=== PATIENT | female | born 1930 | race Two or more races ===

== ENCOUNTER 2018-04-20 11:41 | Inpatient (IN) | payer MEDICARE, OTHER ==
[~2018-04-20] VITALS: Ht 142.2 cm; Wt 48.1 kg
[~2018-04-20 11:41] MED LIST: METH5TAB6 PO; OLOP5DRO OP; VITA1TAB56 PO
--- NOTE | 2018-04-20 12:00 | NUR ---
RAY AT BEDSIDE
--- NOTE | 2018-04-20 12:00 | NUR ---
GRADY FROM HOME DT SP FALL, PATIENT WAS FOUND ON THE FLOOR. PATIENT RECEIVED AWAKE AND ALERT, CONFUSED. APPEARS IN NO DISTRESS. RESPIRATION EVEN AND UNLABORD. AFEBRILE. PER PATIENT'S SON SHE HAS BEEN WEAK FOR THE LAST TWO DAY. VSS. CONNECTED PT TO TELE MONITOR.
[2018-04-20] MEDS ORDERED: IV NS 0.9% 1,000 ML BAG IV ONE (12:30)
[2018-04-20 12:56] LABS: BASOPHILS % (AUTO) 0.4 % (0.0-2.0); EOSINOPHILS % (AUTO) 0.2 % (0.0-6.0); HEMATOCRIT 35 % (33-45); HEMOGLOBIN 12.1 g/dL (11.5-14.8); LYMPHOCYTES # (AUTO) 1.1 /CMM (0.8-4.8); LYMPHOCYTES % (AUTO) 9.3 % (20.0-44.0); MEAN CORPUSCULAR HGB CONC 35 g/dl (31.0-36.0); MEAN CORPUSCULAR VOLUME 98 fL (82-100); MONOCYTES # (AUTO) 0.7 /CMM (0.1-1.30); MONOCYTES % (AUTO) 6.4 % (2.0-12.0); NEUTROPHILS # (AUTO) 9.8 /CMM (1.8-8.9); NEUTROPHILS % (AUTO) 83.7 % (43.0-81.0); PLATELET COUNT (AUTO) 184 /CMM (150-450); RDW COEFFICIENT OF VARIATION 13.7 (11.5-15.0); RED BLOOD CELL COUNT(AUTO) 3.55 MIL/uL (4.0-5.2); WHITE BLOOD COUNT (AUTO) 11.6 K/uL (4.3-11.0)
[2018-04-20 13:06] LABS: APPEARANCE,URINE Clear (CLEAR); BILIRUBIN,URINE Negative (NEGATIVE); BLOOD, URINE Large Ery/uL (NEGATIVE); COLOR,URINE Yellow (YELLOW); KETONES,URINE Negative (NEGATIVE); LEUKOCYTE ESTERASE ,URINE Negative (NEGATIVE); NITRITE, URINE Negative (NEGATIVE); PH,URINE 5.5 (5.0-8.0); PROTEIN,URINE Trace mg/dl (NEGATIVE); UGLUCOSE Negative (NEGATIVE); UROBILINOGEN,URINE 0.2 EU/dL (0.2)
[2018-04-20 13:07] LABS: CALCIUM, SERUM 8.4 mg/dL (8.5-10.1); CARBON DIOXIDE 23 mmol/L (21-32); CHLORIDE 108 mmol/L (98-107); CREATININE 1.5 mg/dL (0.6-1.3); GLUCOSE 116 mg/dL (74-106); POTASSIUM 4.6 mmol/L (3.5-5.1); SODIUM SERUM 140 mmol/L (136-145); UREA NITROGEN, BLOOD 38 mg/dL (7-18)
[2018-04-20 13:09] LABS: INR 1.05 (0.85-1.15)
[2018-04-20 13:12] LABS: RBC,URINE 20-50 /HPF (0-2)
[2018-04-20 13:13] LABS: BACTERIA,URINE None seen /HPF (None Seen); SQUAMOUS EPITHELIAL CELL,UR Few /HPF (None Seen); WBC,URINE 0-3 /HPF (0-3)
[2018-04-20 13:14] LABS: ALANINE AMINOTRANSFERASE 24 U/L (12-78); ALBUMIN 3.2 g/dL (3.4-5.0); ALKALINE PHOSPHATASE 43 U/L (46-116); ASPARTATE AMINOTRANSFERASE 23 U/L (15-37); BILIRUBIN,DIRECT 0.1 mg/dL (0.0-0.2); BILIRUBIN,TOTAL 0.3 mg/dL (0.2-1.0); TOTAL PROTEIN, SERUM 7.7 g/dL (6.4-8.2); TROPONIN I 0.026 ng/mL (0.00-0.056)
[2018-04-20] MEDS ORDERED: AZITHROMYCIN 500 MG in IV D5W 250 ML IV ONE (14:00)
[2018-04-20] MEDS ORDERED: CEFTRIAXONE 1GM BAG (ER ONLY) 1 GM/50 ML PIGGYBACK IV ONE (14:00)
--- NOTE | 2018-04-20 14:02 | NUR ---
CALLED DR MEJIA'S OFFICE AND DR RUGGIERO IS ON THE PHONE WITH HIM.
[2018-04-20] MEDS ORDERED: CEFTRIAXONE 1GM BAG (ER ONLY) 50 ML IV ONE (14:05)
--- NOTE | 2018-04-20 14:13 | NUR ---
CALLED NURSING GRADING SUPERVISOR AND REQUESTED A TELE BED
[2018-04-20] MEDS ORDERED: DIAZ2TAB PO (14:15)
[2018-04-20] MEDS ORDERED: MECL-102 PO (14:15)
[2018-04-20] MEDS ORDERED: OLAN5TAB3 PO (14:15)
[2018-04-20] MEDS ORDERED: ESOM40CA PO (14:15)
[2018-04-20] MEDS ORDERED: MEMA10TA PO (14:15)
--- NOTE | 2018-04-20 15:01 | NUR ---
PT IS ASSIGNED TO [facility] RM#: [id number], PT IS DIAGNOSED WITH GENERALIZED WEAKNESS/PNEUMONIA, AND DR MEJIA IS THE ACCEPTING MD.
--- NOTE | 2018-04-20 15:21 | NUR ---
REPORT GIVEN TO MERLENE MENDIOLA FOR JAYLA
--- NOTE | 2018-04-20 15:23 | NUR ---
PATIENT TRANSPORTED TO TELE VSS
[2018-04-20 16:00] VITALS: BP 138/46
--- NOTE | 2018-04-20 16:00 | NUR ---
GABI RN ADMITTING NOTES RECEIVED REPORT BY AURICULAR DETOXIFICATION SPECIALIST CHILO, PT TRANSFERRED VIA GURNEY ACCOMPANIED BY AURICULAR DETOXIFICATION SPECIALIST, EARLY CHILDHOOD SPECIALIST AND SON. PT ADMITTED TO ROOM 107, ON TELE STATUS. PT/SON ORIENTED TO ROOM, ROUTINE ASSESSMENT DONE. PT IS ALERT AND ORIENTED X1, NO SIGNS OF DISTRESS NOTED, NO C/O PAIN, PLACED ON TELE MONITOR WITH SR, PT HAS RAC HEPLOCK, PATENT AND INTACT. BELONGINGS CHECK DONE BY EARLY CHILDHOOD SPECIALIST. SKIN ASSESSMENT DONE, NOTED REDNESS ON BOTH KNEES DUE TO FALL, PHOTOS TAKEN AND PLACED ON CHART, BED ALARM ON, BED IN LOW AND LOCKED POSITION. SR UP X4 PER SON'S REQUEST, FALL PRECAUTION OBSERVED AT ALL TIMES, WILL CONT TO MONITOR.
[2018-04-20] MEDS ORDERED: IPRATROPIUM NEB FS 0.5 MG/2.5 ML AMPUL.NEB NEB PRN (17:00)
--- NOTE | 2018-04-20 17:00 | NUR ---
RN NOTES: CALLED DR. MEJIA AND INFORMED HIM ABOUT THE ADMISSION W/ ORDERS: - TO START LEVAQUIN 250 MG VIA GT QD - IVF: D5NS X 50 CC/HR (CONTINUOUS) - LABS IN AM: CBC, CMP, MG, IRON PANEL, TSH - PUREED DIET - SWALLOW EVALUATION - ELEVATE HOB 30 DEGREES - ATROVENT Q8H & PRN - DON'T GIVE TRANQUILIZERS & SLEEPING PILLS. SON MARSHALL INFORMED ABOUT THE ORDERS. PER SON, PT IS FULL CODE.
[2018-04-20] MEDS: IV D5/ 0.9% NACL 1,000 ML IV PRN (18:27)
--- NOTE | 2018-04-20 19:00 | NUR ---
RN CLOSING NOTES NO ACUTE CHANGES NOTES WITHIN SHIFT, ENDORSED TO PM RN FOR CONTINUITY OF CARE
--- NOTE | 2018-04-20 19:20 | NUR ---
FUR VAULT ATTENDANT OPENING NOTES RECEIVED REPORT FROM LISSETTE Pittman RN. PATIENT A/A/O X1 W/ SOME CONFUSION NOTED. ABLE TO MAKE SOME NEEDS KNOWN & STATE PAIN. BREATHING EVEN & UNLABORED, TOLERATING ROOM AIR. ON TELE W/ SINUS RHYTHM, HR 64. NO RESPIRATORY OR CARDIAC DISTRESS NOTED @ THIS TIME. RIGHT AV IV #20 INTACT & PATENT W/ DRESSING CDI & IVF D5 NS INFUSING WELL @ 50 ML/HR. DENIES ANY PAIN OR DISCOMFORT @ THIS TIME. SAFETY MEASURES IN PLACE W/ SIDE RAILS UP, BED LOCKED & IN LOWEST POSITION & BED ALARM ON. WILL CONTINUE TO MONITOR.
[2018-04-20 20:00] VITALS: BP 137/77
[2018-04-20 21:00] VITALS: BP 137/77
[2018-04-20] MEDS: IPRATROPIUM NEB FS 0.5 MG/2.5 ML AMPUL.NEB NEB SCH (23:47)
[2018-04-21] VITALS (8 sets, daily range): BP systolic 114–160; BP diastolic 48–113
[2018-04-21 06:15] LABS: BASOPHILS % (AUTO) 0.4 % (0.0-2.0); HEMATOCRIT 36 % (33-45); HEMOGLOBIN 12.3 g/dL (11.5-14.8); LYMPHOCYTES # (AUTO) 1.5 /CMM (0.8-4.8); LYMPHOCYTES % (AUTO) 22.2 % (20.0-44.0); MEAN CORPUSCULAR HGB CONC 34 g/dl (31.0-36.0); MEAN CORPUSCULAR VOLUME 99 fL (82-100); MONOCYTES # (AUTO) 0.7 /CMM (0.1-1.30); MONOCYTES % (AUTO) 9.8 % (2.0-12.0); NEUTROPHILS # (AUTO) 4.4 /CMM (1.8-8.9); NEUTROPHILS % (AUTO) 65.6 % (43.0-81.0); PLATELET COUNT (AUTO) 172 /CMM (150-450); RDW COEFFICIENT OF VARIATION 14.3 (11.5-15.0); RED BLOOD CELL COUNT(AUTO) 3.63 MIL/uL (4.0-5.2); WHITE BLOOD COUNT (AUTO) 6.8 K/uL (4.3-11.0)
[2018-04-21 06:28] LABS: ALANINE AMINOTRANSFERASE 24 U/L (12-78); ALBUMIN 3.2 g/dL (3.4-5.0); ALKALINE PHOSPHATASE 44 U/L (46-116); ASPARTATE AMINOTRANSFERASE 29 U/L (15-37); BILIRUBIN,TOTAL 0.4 mg/dL (0.2-1.0); CALCIUM, SERUM 7.9 mg/dL (8.5-10.1); CARBON DIOXIDE 23 mmol/L (21-32); CHLORIDE 108 mmol/L (98-107); CREATININE 1.1 mg/dL (0.6-1.3); GLUCOSE 120 mg/dL (74-106); MAGNESIUM 2.1 mg/dL (1.8-2.4); POTASSIUM 4.3 mmol/L (3.5-5.1); SODIUM SERUM 142 mmol/L (136-145); TOTAL PROTEIN, SERUM 7.7 g/dL (6.4-8.2); UREA NITROGEN, BLOOD 25 mg/dL (7-18)
[2018-04-21 07:32] LABS: IRON, SERUM 62 ug/dl (50-175); TOTAL IRON BINDING CAPACITY 174 ug/dl (250-450)
[2018-04-21] MEDS: IPRATROPIUM NEB FS 0.5 MG/2.5 ML AMPUL.NEB NEB SCH ×3 (07:33→23:36)
[2018-04-21 08:16] LABS: THYROID STIMULATING HORMONE 3.011 uIU/mL (0.358-3.74)
[2018-04-21] MEDS ORDERED: LEVOFLOXACIN (250MG) 250 MG TABLET PO SCH (09:00)
--- NOTE | 2018-04-21 10:00 | NUR ---
rn note pt was aggitated, pulled out iv and got up off bed. pt placed back to bed, and dr mark contacted and got order for sheba soft wrist restraints. no sedation at this time. will follow through and monitor pt.
[2018-04-21] MEDS ORDERED: DIAZEPAM 2 MG TABLET PO PRN (16:00)
[2018-04-21] MEDS ORDERED: MECLIZINE HCL 12.5 MG TABLET PO PRN (16:00)
[2018-04-21] MEDS: IV D5/ 0.9% NACL 1,000 ML IV PRN (19:59)
--- NOTE | 2018-04-21 20:00 | NUR ---
RN MS INITIAL NOTES RECEIVED PATIENT A/A/O X1 W/ SOME CONFUSION NOTED. ABLE TO MAKE SOME NEEDS KNOWN & STATE PAIN. BREATHING EVEN & UNLABORED, TOLERATING ROOM AIR. NO RESPIRATORY OR CARDIAC DISTRESS NOTED @ THIS TIME. LFA #22 INTACT & PATENT W/ DRESSING CDI & IVF D5 NS INFUSING WELL @ 50 ML/HR. DENIES ANY PAIN OR DISCOMFORT @ THIS TIME. SAFETY MEASURES IN PLACE W/ SIDE RAILS UP, 1:1 SITTER, BED LOCKED & IN LOWEST POSITION & BED ALARM ON. WILL CONTINUE TO MONITOR.
[2018-04-22] VITALS: BP 133/68
[2018-04-22 04:00] VITALS: BP 138/68
--- NOTE | 2018-04-22 06:26 | NUR ---
RN MS CLOSING NOTES ENDORSED PATIENT A/A/O X1 W/ SOME CONFUSION NOTED. ABLE TO MAKE SOME NEEDS KNOWN & STATE PAIN. BREATHING EVEN & UNLABORED, TOLERATING ROOM AIR. NO RESPIRATORY OR CARDIAC DISTRESS NOTED @ THIS TIME. LFA #22 INTACT & PATENT W/ DRESSING CDI & IVF D5 NS INFUSING WELL @ 50 ML/HR. DENIES ANY PAIN OR DISCOMFORT @ THIS TIME. SAFETY MEASURES IN PLACE W/ SIDE RAILS UP, 1:1 SITTER, BED LOCKED & IN LOWEST POSITION & BED ALARM ON. WILL CONTINUE TO MONITOR.
--- NOTE | 2018-04-22 07:30 | NUR ---
RN OPEN NOTES RECEIVE BEDSIDE REPORT FROM BULLET SWAGING MACHINE OPERATOR RN. PATIENT IS IN BED. AWAKE AND CONFUSED. 1:1 SITTER AT BEDSIDE. NO SIGNS AND SYMPTOMS OF DISTRESS. BED IS AT LOWEST POSITION, LOCKED AND TWO SIDE RAILS ARE UP FOR SAFETY. CALL LIGHT WITHIN REACH FOR SAFETY. WILL CONTINUE TO MONITOR PATIENT
[2018-04-22] MEDS: IPRATROPIUM NEB FS 0.5 MG/2.5 ML AMPUL.NEB NEB SCH ×3 (07:41→23:17)
[2018-04-22 08:00] VITALS: BP 126/78
[2018-04-22] MEDS: MEMANTINE HCL 5 MG TABLET PO SCH (08:50)
[2018-04-22] MEDS: PANTOPRAZOLE 40 MG TABLET.DR PO SCH (08:50)
[2018-04-22] MEDS ORDERED: LEVOFLOXACIN (250MG) 250 MG TABLET PO ONE (14:00)
--- NOTE | 2018-04-22 14:00 | NUR ---
IV LINE IS LEAKING. DISCONTINUED OLD LINE AND STARTED A NEW IV SITE ON THE RIGHT FOREARM 22 G. PATIENT TOLERATED PROCEDURE WELL.
[2018-04-22] MEDS: IV D5/ 0.9% NACL 1,000 ML IV PRN (16:47)
[2018-04-22 17:07] VITALS: BP 132/81
[2018-04-22 20:00] VITALS: BP 147/66
[2018-04-23 06:21] LABS: BASOPHILS % (AUTO) 0.4 % (0.0-2.0); EOSINOPHILS % (AUTO) 1.5 % (0.0-6.0); HEMATOCRIT 33 % (33-45); HEMOGLOBIN 11.3 g/dL (11.5-14.8); LYMPHOCYTES # (AUTO) 1.9 /CMM (0.8-4.8); MEAN CORPUSCULAR HGB CONC 34 g/dl (31.0-36.0); MEAN CORPUSCULAR VOLUME 100 fL (82-100); MONOCYTES # (AUTO) 0.8 /CMM (0.1-1.30); MONOCYTES % (AUTO) 11.7 % (2.0-12.0); NEUTROPHILS # (AUTO) 3.8 /CMM (1.8-8.9); NEUTROPHILS % (AUTO) 57.4 % (43.0-81.0); PLATELET COUNT (AUTO) 144 /CMM (150-450); RDW COEFFICIENT OF VARIATION 14.8 (11.5-15.0); RED BLOOD CELL COUNT(AUTO) 3.31 MIL/uL (4.0-5.2); WHITE BLOOD COUNT (AUTO) 6.6 K/uL (4.3-11.0)
[2018-04-23 06:32] LABS: CALCIUM, SERUM 7.4 mg/dL (8.5-10.1); CARBON DIOXIDE 22 mmol/L (21-32); CHLORIDE 109 mmol/L (98-107); CREATININE 1.1 mg/dL (0.6-1.3); GLUCOSE 105 mg/dL (74-106); POTASSIUM 4.3 mmol/L (3.5-5.1); SODIUM SERUM 140 mmol/L (136-145); UREA NITROGEN, BLOOD 19 mg/dL (7-18)
--- NOTE | 2018-04-23 07:25 | NUR ---
RN OPEN NOTES RECEIVE BEDSIDE REPORT FROM [employer] SCHOOL PRINCIPAL RN. PATIENT IS IN BED.SLEEPIN WITH OUT ANY DISTRESS. SITTER AT BEDSIDE. IV RFA#22 WITH D5 1/2 NS AT 50ML /HR. BED IS AT LOWEST POSITION, LOCKED AND TWO SIDE RAILS ARE UP FOR SAFETY. CALL LIGHT WITHIN REACH . ALL NEEDS MET.WILL CONTINUE TO MONITOR PATIENT .
[2018-04-23] MEDS: PANTOPRAZOLE 40 MG TABLET.DR PO SCH (07:48)
[2018-04-23 08:00] VITALS: BP 132/40
[2018-04-23] MEDS: IPRATROPIUM NEB FS 0.5 MG/2.5 ML AMPUL.NEB NEB SCH ×3 (08:08→23:30)
[2018-04-23] MEDS: LEVOFLOXACIN (250MG) 250 MG TABLET PO SCH (08:19)
[2018-04-23] MEDS: MEMANTINE HCL 5 MG TABLET PO SCH (08:19)
[2018-04-23] MEDS: IV D5/ 0.9% NACL 1,000 ML IV PRN (15:30)
[2018-04-23 16:00] VITALS: BP 126/58
--- NOTE | 2018-04-23 19:00 | NUR ---
RN SHIFT END NOTES BEDSIDE REPORT GIVEN TO INDUSTRIAL ROOFER HELPER RN. PATIENT IS IN BED.AWAKE WITH OUT ANY DISTRESS. SITTER AT BEDSIDE. IV RFA#22 WITH D5 1/2 NS AT 50ML /HR. BED IS AT LOWEST POSITION, LOCKED AND TWO SIDE RAILS ARE UP FOR SAFETY. CALL LIGHT WITHIN REACH . ALL NEEDS MET.WILL ENDORSE TO PM NURSE FOR JAYLA.
[2018-04-23 20:00] VITALS: BP 119/31
--- NOTE | 2018-04-23 20:19 | NUR ---
RN NOTES RECEIVED PATIENT IN BED, ALERT AND AWAKE, CALM AT THIS TIME, NO DISTRESS, ON 2LPM VIA NC, SPO2 97%, NO COUGH NOTED, SITTER AT THE BEDSIDE FOR SAFETY. WILL CONTINUE TO MONITOR.
[2018-04-24 04:07] VITALS: BP 125/51
--- NOTE | 2018-04-24 06:37 | NUR ---
RN NOTES PATIENT IN BED, NO DISTRESS, NO SOB, NO CHANGE OF CONDITION DURING SHIFT, VOIDING SPONTANEOUSLY, SITTER AT THE BEDSIDE FOR SAFETY. NEEDS ATTENDED, CALL LIGHT WITHIN REACH.
--- NOTE | 2018-04-24 07:25 | NUR ---
MS RN NOTE: RECEIVED PATIENT IN BED, AWAKE, ALERT TO HER NAME AND CALMLY LYING ON HER BED. RESPIRATION IS EVEN AND UNLABORED. ON O2 3L/MIN VIA NC AND SATURATING 96%. NO FACIAL GRIMACING NOTED. ON 1:1 SITTER DUE TO BEING HIGH RISK FOR FALL. HOB ELEVATED. (R) FOREARM IV LINE NOTED INTACT AND PATENT INFUSING D5NS @50ML/HR. BED IN LOWEST POSITION. BED ALARMED AND LOCKED AT ALL TIMES. CALL LIGHT WITHIN REACH. NEEDS ANTICIPATED.
[2018-04-24] MEDS: IPRATROPIUM NEB FS 0.5 MG/2.5 ML AMPUL.NEB NEB SCH ×3 (07:35→23:32)
--- NOTE | 2018-04-24 07:35 | NUR ---
UNABLE TO GIVE AM HHN; RT UNAVAILABLE
[2018-04-24 08:00] VITALS: BP 127/54
[2018-04-24] MEDS: MEMANTINE HCL 5 MG TABLET PO SCH (08:19)
[2018-04-24] MEDS: PANTOPRAZOLE 40 MG TABLET.DR PO SCH (08:19)
[2018-04-24] MEDS: IV D5/ 0.9% NACL 1,000 ML IV PRN (12:08)
[2018-04-24 16:00] VITALS: BP 126/57
--- NOTE | 2018-04-24 19:55 | NUR ---
MS RN NOTE: PATIENT REMAINED ON STABLE CONDITION HOB ELEVATED AND IV FLUID HYDRATION INFUSING MD ORDER. REPORT GIVEN TO PM SHIFT NURSE FOR CONTINUITY OF CARE. SPOKE WITH DR. MEJIA THAT ACCORDING TO THE ANNUAL CAMPAIGN MANAGER THEY WILL DO THE ULTRASOUND ABD/PELVIC TOMORROW MORNING. PER MD, IT OK AND PATIENT WILL BE KEPT NPO AFTER MIDNIGHT. PM SHIFT NURSE WAS MADE AWARE.
--- NOTE | 2018-04-24 20:00 | NUR ---
RN INITIAL NOTES RECEIVE PATIENT IS IN BED.SLEEPING WITH OUT ANY DISTRESS. SITTER AT BEDSIDE. IV RFA#22 WITH D5 1/2 NS AT 50ML /HR. BED IS AT LOWEST POSITION, LOCKED AND TWO SIDE RAILS ARE UP FOR SAFETY. CALL LIGHT WITHIN REACH . ALL NEEDS MET.WILL CONTINUE TO MONITOR PATIENT .
[2018-04-25 06:00] VITALS: BP 138/56
[2018-04-25] MEDS: IV D5/ 0.9% NACL 1,000 ML IV PRN (06:18)
[2018-04-25 06:25] LABS: BASOPHILS % (AUTO) 0.3 % (0.0-2.0); EOSINOPHILS % (AUTO) 1.4 % (0.0-6.0); HEMATOCRIT 33 % (33-45); HEMOGLOBIN 11.3 g/dL (11.5-14.8); LYMPHOCYTES % (AUTO) 26.6 % (20.0-44.0); MEAN CORPUSCULAR HGB CONC 34 g/dl (31.0-36.0); MEAN CORPUSCULAR VOLUME 99 fL (82-100); MONOCYTES # (AUTO) 0.6 /CMM (0.1-1.30); MONOCYTES % (AUTO) 7.2 % (2.0-12.0); NEUTROPHILS % (AUTO) 64.5 % (43.0-81.0); PLATELET COUNT (AUTO) 157 /CMM (150-450); RDW COEFFICIENT OF VARIATION 13.7 (11.5-15.0); RED BLOOD CELL COUNT(AUTO) 3.33 MIL/uL (4.0-5.2); WHITE BLOOD COUNT (AUTO) 7.7 K/uL (4.3-11.0)
[2018-04-25 06:44] LABS: APPEARANCE,URINE SL CLOUDY (CLEAR); BILIRUBIN,URINE NEGATIVE (NEGATIVE); BLOOD, URINE 2+ Ery/uL (NEGATIVE); COLOR,URINE YELLOW (YELLOW); KETONES,URINE NEGATIVE (NEGATIVE); LEUKOCYTE ESTERASE ,URINE NEGATIVE (NEGATIVE); NITRITE, URINE NEGATIVE (NEGATIVE); PROTEIN,URINE NEGATIVE (NEGATIVE); UGLUCOSE NEGATIVE (NEGATIVE); UROBILINOGEN,URINE 0.2 EU/dL (0.2)
[2018-04-25 06:57] LABS: CALCIUM, SERUM 7.2 mg/dL (8.5-10.1); CARBON DIOXIDE 21 mmol/L (21-32); CHLORIDE 112 mmol/L (98-107); CREATININE 0.9 mg/dL (0.6-1.3); GLUCOSE 108 mg/dL (74-106); POTASSIUM 4.3 mmol/L (3.5-5.1); SODIUM SERUM 143 mmol/L (136-145); UREA NITROGEN, BLOOD 15 mg/dL (7-18)
--- NOTE | 2018-04-25 07:21 | NUR ---
MS RN NOTE: RECEIVED PATIENT IN BED, AWAKE, AND ALERT TO HER NAME ONLY. RESPIRATION IS EVEN AND UNLABORED WITH O2 2L/MIN VIA NC AND SATURATING 98%. NO FACIAL GRIMACING NOTED. HOB ELEVATED. KEPT NPO SINCE MIDNIGHT DUE TO THE US OF THE ABDOMEN/PELVIS. (R) FA IV PERIPHERAL LINE NOTED PATENT AND INTACT AND INFUSING D5NS@ 50ML/HR. BED ALARMED AND LOCKED AT ALL TIMES. CALL LIGHT WITHIN REACH. ON 1:1 SITTER FOR CLOSE MONITORING AND FOR SAFETY PURPOSES.
[2018-04-25 07:24] LABS: BACTERIA,URINE Few /HPF (None Seen); SQUAMOUS EPITHELIAL CELL,UR Few /HPF (None Seen)
[2018-04-25 07:25] LABS: WBC,URINE 0-2 /HPF (0-3)
[2018-04-25] MEDS: PANTOPRAZOLE 40 MG TABLET.DR PO SCH (07:30)
--- NOTE | 2018-04-25 07:35 | NUR ---
MS CLOSING NOTES NO CHANGE IN PTS CONDITION OVER SHIFT. PT IS ABLE TO MAKE SOME NEEDS KNOWN & STATE PAIN. BREATHING EVEN & UNLABORED, TOLERATING ROOM AIR. NO RESPIRATORY OR CARDIAC DISTRESS NOTED @ THIS TIME. LFA #22 INTACT & PATENT W/ DRESSING CDI & IVF D5 NS INFUSING WELL @ 50 ML/HR. DENIES ANY PAIN OR DISCOMFORT @ THIS TIME. SAFETY MEASURES IN PLACE W/ SIDE RAILS UP, 1:1 SITTER, BED LOCKED & IN LOWEST POSITION & BED ALARM ON. WILL ENDORSE TO AM RN
[2018-04-25 08:00] VITALS: BP 123/50
[2018-04-25] MEDS: IPRATROPIUM NEB FS 0.5 MG/2.5 ML AMPUL.NEB NEB SCH ×3 (08:02→23:14)
[2018-04-25] MEDS: LEVOFLOXACIN (250MG) 250 MG TABLET PO SCH (09:00)
[2018-04-25] MEDS: MEMANTINE HCL 5 MG TABLET PO SCH (09:00)
--- NOTE | 2018-04-25 11:35 | NUR ---
MS RN NOTE: CALLED AND SPOKE WITH DR. MEJIA AND CLARIFIED WITH HIM THE ORDER FOR ABDOMINAL ULTRASOUND. PER MOLDER SHOULDER PAD, LARRY, THE DIAGNOSIS IS NOT THE RIGHT ONE FOR THE TEST REQUESTED. PER YESSY TRAVIS THE US ABDOMEN AND CHANGED IT TO RENAL ULTRASOUND. ORDER, NOTED AND ACKNOWLEDGED. MARSHALL SON WAS MADE AWARE.
--- NOTE | 2018-04-25 12:40 | NUR ---
MS RN NOTE: SPOKE WITH LARRY, US MOSS PICKER AND ACCORDING TO HER THE PATIENT DOES NOT NEED TO BE NPO FOR THE RENAL ULTRASOUND TEST. DR. MEJIA MADE AWARE AND ORDERED TO RESUME THE PUREED DIET FOR LUNCH. CALLED AND LEFT MESSAGE TO MARSHALL, SON PER HIS REQUEST TO RECEIVE TO CALL HIM FOR ANY UPDATES.
[2018-04-25 16:00] VITALS: BP 144/63
[2018-04-25] MEDS ORDERED: IV D5/ 0.9% NACL 1,000 ML IV PRN (18:30)
--- NOTE | 2018-04-25 18:35 | NUR ---
MS RN NOTE: DR. MEJIA WAS PRESENT IN THE UNIT MADE HIM AWARE ABOUT THE PATIENT'S SON, MARSHALL'S REQUEST FOR A PT EVALUATION FOR THE PATIENT. MD WITH NEW ORDERS, NOTED AND ACKNOWLEDGED. DR. MEJIA WAS ALSO AWARE OF THE PELVIS ULTRASOUND AND RENAL ULTRASOUND RESULT. REPORT GIVEN TO PM SHIFT NURSE FOR CONTINUITY OF CARE.
[2018-04-25] MEDS ORDERED: MECL12.582 PO (18:36)
[2018-04-25] MEDS ORDERED: LEVO250T2 PO (18:36)
[2018-04-25] MEDS ORDERED: DIAZ2TAB3 PO (18:36)
[2018-04-25] MEDS ORDERED: PANT40TA2 PO (18:36)
[2018-04-25] MEDS ORDERED: MEMA5TAB PO (18:36)
--- NOTE | 2018-04-25 20:00 | NUR ---
RN INITIAL NOTES RECEIVE PATIENT IN BED. SLEEPING WITH OUT ANY DISTRESS. SITTER AT BEDSIDE. IV RFA#22 WITH D5 1/2 NS AT 30ML /HR. BED IS IN LOWEST POSITION, LOCKED AND TWO SIDE RAILS ARE UP FOR SAFETY. CALL LIGHT WITHIN REACH . ALL NEEDS MET.WILL CONTINUE TO MONITOR PATIENT .
[2018-04-25 21:00] VITALS: BP 124/54
[2018-04-26] VITALS: BP 121/59
[2018-04-26 04:00] VITALS: BP 119/58
[2018-04-26 05:00] VITALS: BP 119/58
--- NOTE | 2018-04-26 06:58 | NUR ---
MS CLOSING NOTES NO CHANGE IN PTS CONDITION OVER SHIFT. PT IS ABLE TO MAKE SOME NEEDS KNOWN & STATE PAIN. BREATHING EVEN & UNLABORED, TOLERATING ROOM AIR. NO RESPIRATORY OR CARDIAC DISTRESS NOTED @ THIS TIME. LFA #22 INTACT & PATENT W/ DRESSING CDI & IVF D5 NS INFUSING WELL @ 30 ML/HR. DENIES ANY PAIN OR DISCOMFORT @ THIS TIME. SAFETY MEASURES IN PLACE W/ SIDE RAILS UP, 1:1 SITTER, BED LOCKED & IN LOWEST POSITION & BED ALARM ON. WILL ENDORSE TO AM RN
--- NOTE | 2018-04-26 07:18 | NUR ---
RN INITIAL NOTES: Rec'd pt awake on bed, not in any distress, A/O x 1, w/ confusion, Nauruan speaking only. On NC/3lpm, no SOB noted. Has RFA G22, PL, patent & intact w/ no s/sx of infection/infiltration noted, w/ D5NS x 30 cc/hr infusing well. Has 1:1 sitter at bedside for safety. Provided comfort & safety measures. Bed kept low & in locked pos. Call light placed w/in reach. Will continue to monitor & attend pt needs.
[2018-04-26] MEDS: IPRATROPIUM NEB FS 0.5 MG/2.5 ML AMPUL.NEB NEB SCH ×2 (07:26→15:10)
[2018-04-26 08:00] VITALS: BP 127/60
[2018-04-26] MEDS: MEMANTINE HCL 5 MG TABLET PO SCH (08:39)
[2018-04-26] MEDS: PANTOPRAZOLE 40 MG TABLET.DR PO SCH (08:39)
--- NOTE | 2018-04-26 08:57 | NUR ---
RN NOTES: Pt seen & examined by Dr. Case w/ orders may DC pt to home today.
--- NOTE | 2018-04-26 13:00 | NUR ---
RN NOTES: Per PT, eval done. Pt can do amb w/ FWW w/ CGA.
--- NOTE | 2018-04-26 15:59 | NUR ---
PSYCHIATRY ADULT PHYSICIAN NOTES: Pt DC'd to Home w/ HH as ordered. DC documents & instructions provided to the pt's son Ilir w/ verbalization of understanding. Med recon faxed to pharmacy of choice w/ confirmation rec'd. IV line access removed, pressure dressing applied, no sign of bleeding noted. All belongings checked by ELECTRIC ORGAN ASSEMBLER & sent w/ the pt, nothing is missing. All DC documents signed by the son. No concern identified at the time of DC. Pt left the unit in stable condition via wheelchair accompanied by ELECTRIC ORGAN ASSEMBLER & son.
== END 2018-04-26 15:55 | disposition home health service (06) | DRG 871 ==
LOC: ER 11:48 → TELE1 15:29 → MEDSG1 04-21 12:03
PROVIDERS: ADMIT Family Medicine; ATTEND Family Medicine
DX: A41.9 Sepsis, unspecified organism (principal); J69.0 Pneumonitis due to inhalation of food and vomit; N17.9 Acute kidney failure, unspecified; R64 Cachexia; I13.0 Hypertensive heart and chronic kidney disease with heart failure and stage 1 through stage 4 chronic kidney disease, or unspecified chronic kidney disease; I48.91 Unspecified atrial fibrillation; I50.9 Heart failure, unspecified; E86.0 Dehydration; G30.9 Alzheimer's disease, unspecified; E78.5 Hyperlipidemia, unspecified; F43.10 Post-traumatic stress disorder, unspecified; F02.80 Dementia in other diseases classified elsewhere, unspecified severity, without behavioral disturbance, psychotic disturbance, mood disturbance, and anxiety; N39.0 Urinary tract infection, site not specified; J98.11 Atelectasis; W19.XXXA Unspecified fall, initial encounter; Y93.9 Activity, unspecified; Y92.009 Unspecified place in unspecified non-institutional (private) residence as the place of occurrence of the external cause; K21.0 Gastro-esophageal reflux disease with esophagitis; M19.90 Unspecified osteoarthritis, unspecified site; M81.0 Age-related osteoporosis without current pathological fracture; N18.9 Chronic kidney disease, unspecified; I25.10 Atherosclerotic heart disease of native coronary artery without angina pectoris; Z86.73 Personal history of transient ischemic attack (TIA), and cerebral infarction without residual deficits; M40.209 Unspecified kyphosis, site unspecified; M62.50 Muscle wasting and atrophy, not elsewhere classified, unspecified site; R55 Syncope and collapse; K44.9 Diaphragmatic hernia without obstruction or gangrene; R31.9 Hematuria, unspecified
CPT/HCPCS: 36415; 70450-TC; 71045-TC; 76770-TC; 76856-TC; 80048-TC; 80053-TC; 80076-TC; 81000-TC; 83540-TC; 83605-TC; 83735-TC; 84443-TC; 84484-TC; 85025-TC; 85730-TC; 87040-TC; 87081-TC; 87086-TC; 92611-TC; 93307-TC; 94799-TC; A4606; J0456; J0696; J7030; J7042; J7060; J7070; Z7610